=== PATIENT | male | born 1995 | race Caucasian/White ===

== ENCOUNTER → 2016-11-08 | Emergency (ER) | payer BC ==
[~2016-11-08] VITALS: Ht 190.5 cm; Wt 108.9 kg
[~2016-11-08] MED LIST: ADDE30CA PO; CEFD300CAP FT; CEFD300CAP PO; CEFT250T PO; METAL LOCK LOOP XX ONE; WELLTAB PO
[2016-11-08 02:58] VITALS: BP_SYST 130
== END | disposition home or self-care (01) ==
LOC: M ED 03:29
DX: S99.929A Unspecified injury of unspecified foot, initial encounter (principal); Z53.21 Procedure and treatment not carried out due to patient leaving prior to being seen by health care provider

== ENCOUNTER → 2018-09-25 | Outpatient (REF) | payer OTHER ==
[~2018-09-25] MED LIST changes: -METAL LOCK LOOP XX ONE; +OSEL75CA PO
[2018-09-25 17:11] LABS: APPEARANCE, URINE CLEAR (CLEAR); BACTERIA, URINE AUTO NEGATIVE (NEGATIVE); BILIRUBIN, URINE AUTO NEGATIVE (NEGATIVE); BLOOD, URINE BLOOD NEGATIVE (NEGATIVE); COLOR, URINE YELLOW (YELLOW); GLUCOSE, URINE (UA) AUTO NEGATIVE (NEGATIVE); KETONE, URINE AUTO NEGATIVE (NEGATIVE); LEUKOCYTE ESTERASE, URINE AUTO NEGATIVE (NEGATIVE); MUCUS, URINE SMALL (NEGATIVE); NITRITE, URINE AUTO NEGATIVE (NEGATIVE); PROTEIN, URINE AUTO NEGATIVE (NEGATIVE); RBC, URINE AUTO 0 /HPF (0-3); SPECIFIC GRAVITY URINE AUTO 1.018 (1.002-1.035); SQUAMOUS EPITHELIAL CELL UR AU 0 /HPF (0-6); UROBILINOGEN, URINE AUTO 0.2 mg/dL (0.0-2.0); WBC, URINE AUTO 1 /HPF (0-3)
[2018-09-25 22:04] LABS: CHLAMYDIA DNA AMPLIFICATION NEGATIVE (NEGATIVE); GC DNA AMPLIFICATION NEGATIVE (NEGATIVE)
== END ==
LOC: M LAB REF 16:40
PROVIDERS: ATTEND Family Medicine
DX: Z00.01 Encounter for general adult medical examination with abnormal findings (principal); Z11.3 Encounter for screening for infections with a predominantly sexual mode of transmission

== ENCOUNTER 2018-09-27 13:32 | Emergency (ER) | payer OTHER ==
[~2018-09-27] VITALS: Ht 190.5 cm; Wt 141.8 kg
[~2018-09-27 13:32] MED LIST changes: -OSEL75CA PO
[2018-09-27] MEDS ORDERED: IBUPROFEN 600 MG TAB PO ONE (15:15)
[2018-09-27] MEDS ORDERED: ONDANSETRON 4 MG ORAL DISINTEGRATING TAB (Q0162 PER 1MG) PO ONE (15:15)
[2018-09-27 16:18] LABS: INFLUENZA A AMPLIFICATION POSITIVE (NEGATIVE); INFLUENZA B AMPLIFICATION NEGATIVE (NEGATIVE)
[2018-09-27] MEDS ORDERED: OSEL75CA PO (16:23)
[2018-09-27] MEDS ORDERED: OSELTAMIVIR PHOSPHATE 75 MG CAP (TAMIFLU) PO ONE (16:30)
[2018-09-27 16:36] VITALS: BP 127/63
== END 2018-09-27 16:38 | disposition home or self-care (01) ==
LOC: M ED 13:32
DX: J09.X2 Influenza due to identified novel influenza A virus with other respiratory manifestations (principal); R11.10 Vomiting, unspecified; Z79.899 Other long term (current) drug therapy
CPT/HCPCS: 87502; 87880; 99284; Q0162

== ENCOUNTER 2018-12-04 10:14 | Emergency (ER) | payer OTHER ==
[~2018-12-04] VITALS: Ht 190.5 cm; Wt 140.9 kg
[~2018-12-04 10:14] MED LIST changes: +CEFD1CAP8 FT; +CEFD1CAP8 PO; -CEFD300CAP FT; -CEFD300CAP PO; +OSEL75CA PO
[2018-12-04] MEDS ORDERED: CLAR10CA3 PO (11:58)
[2018-12-04] MEDS ORDERED: IBUP80TA PO (11:58)
[2018-12-04] MEDS ORDERED: AUGM875T28 PO (11:58)
[2018-12-04] MEDS ORDERED: MUCI600T31 PO (11:58)
[2018-12-04] MEDS ORDERED: ACETAMINOPHEN 500 MG TAB PO ONE (12:00)
[2018-12-04] MEDS ORDERED: AUGMENTIN 875 MG TAB PO ONE (12:00)
[2018-12-04 12:09] VITALS: BP 136/78
== END 2018-12-04 12:14 | disposition home or self-care (01) ==
LOC: M ED 10:14
DX: J01.90 Acute sinusitis, unspecified (principal); F33.9 Major depressive disorder, recurrent, unspecified; F41.9 Anxiety disorder, unspecified; F90.9 Attention-deficit hyperactivity disorder, unspecified type; Z79.899 Other long term (current) drug therapy

== ENCOUNTER → 2019-03-26 | Outpatient (CLI) | payer OTHER ==
[~2019-03-26] MED LIST changes: +AUGM875T28 PO; +CLAR10CA3 PO; +IBUP80TA PO; +MUCI600T31 PO
== END ==
LOC: M OUTALCOH 07:57
PROVIDERS: ATTEND Psychiatry & Neurology Psychiatry
DX: F12.20 Cannabis dependence, uncomplicated (principal)

== ENCOUNTER 2019-04-17 09:00 | Outpatient (RCR) | payer OTHER | END 2019-04-22 | LOC: M OUTALCOH 09:00 | PROVIDERS: ATTEND Psychiatry & Neurology Psychiatry | DX: F12.20 Cannabis dependence, uncomplicated (principal) ==

== ENCOUNTER 2019-04-29 19:40 | Emergency (ER) | payer OTHER ==
[~2019-04-29] VITALS: Ht 188 cm; Wt 131.8 kg
[2019-04-29] MEDS ORDERED: BUPIVACAINE HCL 0.5% 30 ML VIAL SC ONE (20:45)
[2019-04-29] MEDS ORDERED: AUGM500T34 PO (21:33)
[2019-04-29] MEDS ORDERED: AUGMENTIN 875 MG TAB PO ONE (21:45)
[2019-04-29] MEDS ORDERED: IBUP-1022 PO (22:08)
[2019-04-29 22:11] VITALS: BP 140/80
== END 2019-04-29 22:12 | disposition home or self-care (01) ==
LOC: M ED 19:40
DX: S61.411A Laceration without foreign body of right hand, initial encounter (principal); S71.111A Laceration without foreign body, right thigh, initial encounter; W25.XXXA Contact with sharp glass, initial encounter; Y92.018 Other place in single-family (private) house as the place of occurrence of the external cause

== ENCOUNTER 2019-05-22 15:00 | Outpatient (RCR) | payer OTHER ==
[~2019-05-22 15:00] MED LIST changes: +AUGM500T34 PO; +IBUP-1022 PO
== END 2019-05-23 ==
LOC: M OUTALCOH 15:00
PROVIDERS: ATTEND Psychiatry & Neurology Psychiatry
DX: F12.20 Cannabis dependence, uncomplicated (principal)

== ENCOUNTER 2019-05-31 08:45 | Outpatient (RCR) | payer OTHER | END 2019-06-22 | LOC: M OUTALCOH 08:45 | PROVIDERS: ATTEND Psychiatry & Neurology Psychiatry | DX: F12.20 Cannabis dependence, uncomplicated (principal) ==

== ENCOUNTER 2019-06-26 17:02 | Emergency (ER) | payer OTHER ==
[~2019-06-26] VITALS: Ht 188 cm; Wt 138.6 kg
[2019-06-26] MEDS ORDERED: NS 1,000 ML IV ONE ×2 (17:30→18:00)
[2019-06-26 17:37] LABS: BASO % 0.4 % (0.0-1.0); EOS % 0.1 % (0.0-3.0); HEMATOCRIT 47.1 % (42.0-52.0); HEMOGLOBIN 15.6 g/dl (13.5-17.5); LYMPH # 1.3 10^3/uL (1.5-5.0); LYMPH % 15.1 % (24.0-44.0); MEAN CORPUSCULAR HEMOGLOBIN 28.9 pg (27.0-33.0); MEAN CORPUSCULAR HGB CONC 33.1 g/dl (32.0-36.5); MEAN CORPUSCULAR VOLUME 87.2 fl (80.0-96.0); MONO # 0.5 10^3/uL (0.0-0.8); MONO % 6.3 % (0.0-5.0); NEUTROPHILS # 6.5 10^3/uL (1.5-8.5); NEUTROPHILS % 77.7 % (36.0-66.0); PLATELET COUNT, AUTOMATED 241 10^3/uL (150-450); WHITE BLOOD COUNT 8.3 10^3/uL (4.0-10.0)
[2019-06-26 18:09] LABS: ALT/SGPT 32 U/L (12-78); BLOOD UREA NITROGEN 8 MG/DL (7-18); CALCIUM LEVEL 9.2 MG/DL (8.5-10.1); CARBON DIOXIDE LEVEL 24 MEQ/L (21-32); CHLORIDE LEVEL 108 MEQ/L (98-107); CREATININE FOR GFR 0.83 MG/DL (0.70-1.30); GLOMERULAR FILTRATION RATE > 60.0 (>60); GLUCOSE, FASTING 88 MG/DL (70-100); POTASSIUM SERUM 3.9 MEQ/L (3.5-5.1); SODIUM LEVEL 140 MEQ/L (136-145)
[2019-06-26 18:10] LABS: BILIRUBIN,DIRECT 0.1 MG/DL (0.0-0.2); BILIRUBIN,TOTAL 0.5 MG/DL (0.2-1.0); LIPASE 96 U/L (73-393); TOTAL PROTEIN 7.4 GM/DL (6.4-8.2)
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
[2019-06-26 19:16] VITALS: BP 121/65
--- NOTE | 2019-06-27 17:58 | ECGEPIP ---
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
== END 2019-06-26 19:30 | disposition home or self-care (01) ==
LOC: M ED 17:02
DX: R55 Syncope and collapse (principal)

== ENCOUNTER 2021-08-04 13:47 | Emergency (ER) | payer OTHER ==
[~2021-08-04] VITALS: Ht 188 cm; Wt 150.0 kg
[2021-08-04 13:54] VITALS: BP 155/84
== END 2021-08-04 19:43 | disposition left against medical advice (07) ==
LOC: EDBD 13:47 → M ED 13:47
DX: Z53.29 Procedure and treatment not carried out because of patient's decision for other reasons (principal)

== ENCOUNTER 2024-06-11 08:59 | Emergency (ER) | payer OTHER ==
[~2024-06-11] VITALS: Ht 182.9 cm; Wt 104.6 kg
[2024-06-11] MEDS ORDERED: ISOVUE-370 76% 100ML VIAL As Ordered ONE (09:33)
[2024-06-11] MEDS: ONDANSETRON 4MG 2ML VIAL IV ONE (09:34)
[2024-06-11 09:41] LABS: BASO % 0.6 % (0.0-1.0); EOS # 0.1 10^3/uL (0.0-0.5); EOS % 0.7 % (0.0-3.0); HEMOGLOBIN 16.2 g/dl (13.5-17.5); LYMPH # 2.2 10^3/uL (1.5-5.0); LYMPH % 31.5 % (24.0-44.0); MEAN CORPUSCULAR HEMOGLOBIN 29.5 pg (27.0-33.0); MEAN CORPUSCULAR HGB CONC 33.1 g/dl (32.0-36.5); MEAN CORPUSCULAR VOLUME 89.3 fl (80.0-96.0); MONO # 0.7 10^3/uL (0.0-0.8); MONO % 9.7 % (2.0-8.0); NEUTROPHILS % 57.2 % (36.0-66.0); PLATELET COUNT, AUTOMATED 238 10^3/uL (150-450); RED BLOOD COUNT 5.49 10^6/uL (4.30-6.10); WHITE BLOOD COUNT 6.9 10^3/uL (4.0-10.0)
[2024-06-11 10:02] LABS: BILIRUBIN,DIRECT 0.3 MG/DL (<0.4); BILIRUBIN,TOTAL 0.8 MG/DL (0.3-1.2); TOTAL PROTEIN 6.9 G/DL (5.7-8.2)
[2024-06-11] MEDS: MORPHINE 4 MG/ML 1ML VIAL IV ONE (10:13)
[2024-06-11] MEDS ORDERED: ONDA-282 PO (11:23)
[2024-06-11] MEDS ORDERED: DICY-61 PO (11:23)
[2024-06-11] MEDS: KETOROLAC 30 MG/ML 1ML VIAL IV ONE (11:36)
[2024-06-11 12:00] VITALS: BP 110/61; TEMP 97.3; O2SAT 98
== END 2024-06-11 12:06 | disposition home or self-care (01) ==
LOC: M ED 08:59
DX: A09 Infectious gastroenteritis and colitis, unspecified (principal); F41.9 Anxiety disorder, unspecified; F90.9 Attention-deficit hyperactivity disorder, unspecified type; Z79.899 Other long term (current) drug therapy
CPT/HCPCS: 74177; 80047; 80076; 81001; 83690; 85025; 96374; 96375; 99284; J1885; J2405; Q9967

== ENCOUNTER 2024-09-23 13:24 | Emergency (ER) | payer OTHER ==
[~2024-09-23] VITALS: Ht 190.5 cm; Wt 102.3 kg
[~2024-09-23 13:24] MED LIST changes: +DICY-61 PO; +ONDA-282 PO
[2024-09-23 13:34] VITALS: BP 132/63; TEMP 97.6; O2SAT 99
[2024-09-23] MEDS ORDERED: BOOSTRIX VACCINE (TETANUS/DIPHTH/ACEL. PERTUSSIS) 0.5ML SYR IM ONE (15:20)
[2024-09-23] MEDS: BOOSTRIX VACCINE (TETANUS/DIPHTH/ACEL. PERTUSSIS) 0.5ML SYR IM ONE (15:44)
[2024-09-23] MEDS: NEOSPORIN TOP OINT 15GM TOP ONE (16:11)
== END 2024-09-23 16:27 | disposition home or self-care (01) ==
LOC: M ED 13:24
DX: S61.216A Laceration without foreign body of right little finger without damage to nail, initial encounter (principal); W26.8XXA Contact with other sharp object(s), not elsewhere classified, initial encounter; Y92.9 Unspecified place or not applicable; Y93.89 Activity, other specified; Y99.9 Unspecified external cause status; Z79.899 Other long term (current) drug therapy; Z79.2 Long term (current) use of antibiotics; Z23 Encounter for immunization

== ENCOUNTER 2024-10-05 12:07 | Emergency (ER) | payer OTHER ==
[~2024-10-05] VITALS: Ht 190.5 cm; Wt 103.4 kg
[2024-10-05 12:09] VITALS: BP 124/77; TEMP 97.4; O2SAT 99
[2024-10-05] MEDS: TETRACAINE 0.5% OPHTH SOLN 4ML OD ONE (13:19)
[2024-10-05] MEDS: FLUORESCEIN OPHTH 1MG STRIP OD ONE (13:21)
[2024-10-05] MEDS ORDERED: ERYT5OIN25 OD (13:36)
[2024-10-05] MEDS: ERYTHROMYCIN OPHTH OINT OD ONE (13:47)
== END 2024-10-05 14:05 | disposition home or self-care (01) ==
LOC: M ED 12:07
DX: H57.8A1 Foreign body sensation, right eye (principal)